=== PATIENT | male | born 1970 | race Two or more races ===

== ENCOUNTER 2023-12-24 10:32 | Inpatient (IN) | payer MEDICAID ==
[2023-12-24 11:26] LABS: BASOPHILS PERCENT AUTO 0.4 % (0.0-1.0); EOSINOPHILS ABSOLUTE AUTO 0.2 K/mm3 (0.0-0.4); EOSINOPHILS PERCENT AUTO 1.8 % (0.0-6.0); HEMATOCRIT 43.1 % (42.0-52.0); HEMOGLOBIN 14.1 gm/dl (14.0-18.0); IMMATURE GRAN ABSOLUTE AUTO 0.03 K/mm3 (0.00-0.05); IMMATURE GRAN PERCENT AUTO 0.4 % (0.0-0.4); LYMPHOCYTES ABSOLUTE AUTO 1.3 K/mm3 (1.0-4.8); MEAN CORPUSCULAR HEMOGLOBIN 24.2 pg (28.0-32.0); MEAN CORPUSCULAR HGB CONC 32.7 g/dl (32.0-36.0); MEAN CORPUSCULAR VOLUME 73.9 fl (83.0-99.0); MONOCYTES ABSOLUTE AUTO 1.1 K/mm3 (0.0-0.8); MONOCYTES PERCENT AUTO 12.6 % (0.0-8.0); NEUTROPHILS ABSOLUTE AUTO 5.8 K/mm3 (1.8-7.7); NEUTROPHILS PERCENT AUTO 69.8 % (41.0-71.0); PLATELET COUNT,PLT 154 K/mm3 (150-400); RED BLOOD CELL COUNT 5.83 M/mm3 (4.52-5.90); WHITE BLOOD CELL COUNT,WBC 8.31 K/mm3 (3.9-11.3)
[2023-12-24 11:37] LABS: A/G RATIO 0.8 (1-2); ALANINE AMINOTRANSFERASE,ALT 52 U/L (16-63); ALBUMIN 3.3 g/dl (3.4-5.0); ALKALINE PHOSPHATASE 80 U/L (46-116); ANION GAP 15.2 (5-15); ASPARTATE AMNIOTRANSFERASE,AST 58 U/L (15-37); BILIRUBIN TOTAL 1.7 mg/dL (0.2-1.0); BLOOD UREA NITROGEN,BUN 7 mg/dL (7-18); CALCIUM 8.5 mg/dL (8.5-10.1); CARBON DIOXIDE,CO2 23 mEq/L (21-32); CHLORIDE,CL 100 mEq/L (98-107); EST CRCL DRUG DOSING (CG) 76.21 mL/min; ESTIMATED GFR 89 mL/min (>60); GLUCOSE RANDOM 138 mg/dL (70-99); INR 1.23; LIPASE 41 U/L (16-77); MAGNESIUM 2.1 mg/dL (1.8-2.4); POTASSIUM,K 4.2 mEq/L (3.5-5.1); PROTEIN TOTAL,TP 7.7 g/dl (6.4-8.2); PROTHROMBIN TIME 12.9 SECONDS (9.7-12.0); SODIUM,NA 134 mEq/L (136-145)
[2023-12-24 11:47] LABS: TROPONIN I HIGH SENSITIVITY < 4 pg/mL (<=76)
[2023-12-24] MEDS: Sodium Chloride 0.9% 1,000 ML IV ONE ×3 (11:54→15:10)
[2023-12-24 12:23] LABS: APPEARANCE,URINE CLEAR (Clear); BILIRUBIN,URINE 1+ (Negative); COLOR,URINE DARK YELLOW (Yellow); GLUCOSE,URINE NEGATIVE (Negative); KETONES,URINE 1+ (Negative); LEUKOCYTE ESTERASE,URINE NEGATIVE (Negative); NITRITE,URINE NEGATIVE (Negative); OCCULT BLOOD,URINE TRACE-INTACT (Negative); PROTEIN,URINE 2+ (Negative); UROBILINOGEN,URINE 0.2 (0.2-1.0)
[2023-12-24 12:32] LABS: BARBITURATE SCREEN,URINE NEGATIVE (CUTOFF=200); BENZODIAZEPINES SCREEN,URINE NEGATIVE (CUTOFF=150); BUPRENORPHINE SCREEN,URINE NEGATIVE (CUTOFF=10); METHADONE SCREEN, URINE NEGATIVE (CUT0FF=200); METHAMPHETAMINES SCREEN, URINE NEGATIVE (CUTOFF=500); OXYCODONE SCREEN,URINE NEGATIVE (CUT0FF=100); THC SCREEN,URINE 20 NG/ML NEGATIVE (CUTOFF=50)
[2023-12-24 12:36] LABS: AMPHETAMINES SCREEN, URINE NEGATIVE (CUTOFF=500)
[2023-12-24 12:42] LABS: BACTERIA,URINE MODERATE /hpf (FEW); MUCUS,URINE MODERATE /hpf (FEW); RBC,URINE 0-5 /hpf (0-5); SQUAMOUS EPITHELIAL CELLS,UR 0-5 /hpf (0-5); WBC,URINE 0-5 /hpf (0-5)
[2023-12-24] MEDS: Diltiazem 25 MG/5 ML SDV IVPUSH ONE (14:12)
[2023-12-24] MEDS: LORazepam 2 MG/ML SDV ONE (14:35)
[2023-12-24] MEDS: Multivitamin Tab PO SCH (15:08)
[2023-12-24] MEDS: Folic Acid 1 MG Tab PO SCH (15:08)
[2023-12-24] MEDS: Ondansetron 4 MG/2 ML SDV IV PRN (15:10)
[2023-12-24] MEDS: Thiamine 200 MG/2 ML MDV IVPUSH SCH (15:10)
[2023-12-24] MEDS: Folic Acid 50 MG/10 ML MDV IV SCH (15:10)
[2023-12-24] MEDS: Sodium Chloride 0.9% 1,000 ML IV SCH (15:14)
[2023-12-24] MEDS: Lidocaine 2% with EPINEPHrine 1:100,000 20 ML MDV INJECT ONE (19:47)
[2023-12-24] MEDS: levETIRAcetam 500 MG/5 ML SDV IVPUSH ONE (22:16)
[2023-12-24] MEDS: LORazepam 2 MG/ML SDV IV PRN ×2 (22:22→23:38)
[2023-12-24] MEDS: Diphtheria,Pertussis(Acell),Tetanus Vaccine 0.5 ML Syringe IM ONE (22:58)
[2023-12-24] MEDS: Benzonatate 100 MG Cap PO PRN (22:58)
[2023-12-25] MEDS: PHENobarbital Sodium 65 MG/ML SDV ONE (00:24)
[2023-12-25] MEDS: PHENobarbital Sodium 65 MG/ML SDV IVPUSH ONE (00:28)
[2023-12-25] MEDS: LORazepam 2 MG/ML SDV IVPUSH SCH ×2 (01:36→20:12)
[2023-12-25 05:31] LABS: HEMATOCRIT 34.4 % (42.0-52.0); MEAN CORPUSCULAR HEMOGLOBIN 24.9 pg (28.0-32.0); MEAN CORPUSCULAR HGB CONC 32.6 g/dl (32.0-36.0); MEAN CORPUSCULAR VOLUME 76.6 fl (83.0-99.0); MEAN PLATELET VOLUME 10.7 fl (9.4-12.4); PLATELET COUNT,PLT 114 K/mm3 (150-400); RED BLOOD CELL COUNT 4.49 M/mm3 (4.52-5.90); WHITE BLOOD CELL COUNT,WBC 6.67 K/mm3 (3.9-11.3)
[2023-12-25 05:32] LABS: HEMOGLOBIN 11.2 gm/dl (14.0-18.0)
[2023-12-25 06:49] LABS: A/G RATIO 0.7 (1-2); ALBUMIN 2.7 g/dl (3.4-5.0); ANION GAP 14.7 (5-15); BILIRUBIN TOTAL 1.3 mg/dL (0.2-1.0); BUN/CREATININE RATIO 7.1 (14-18); CALCIUM 7.5 mg/dL (8.5-10.1); CREATININE 0.7 mg/dL (0.7-1.3); EST CRCL DRUG DOSING (CG) 108.87 mL/min; POTASSIUM,K 3.7 mEq/L (3.5-5.1); PROTEIN TOTAL,TP 6.5 g/dl (6.4-8.2); TSH 1.647 uIU/mL (0.358-3.74)
[2023-12-25 08:11] LABS: HEMOGLOBIN A1C 5.2 %
[2023-12-25] MEDS: Labetalol 100 MG/20 ML MDV IVPUSH ONE (08:35)
[2023-12-25] MEDS ORDERED: LORazepam 2 MG/ML SDV IVPUSH PRN (10:14)
[2023-12-25] MEDS: levETIRAcetam 500 MG/5 ML SDV IVPUSH SCH ×2 (13:10→22:11)
[2023-12-25] MEDS: Nicotine 21 MG/24 Hr Patch TRDERM SCH (14:40)
[2023-12-26] MEDS: LORazepam 2 MG/ML SDV IVPUSH PRN ×4 (01:32→19:31)
[2023-12-26] MEDS: LORazepam 2 MG/ML SDV ONE (02:50)
[2023-12-26 05:44] LABS: HEMATOCRIT 36.1 % (42.0-52.0); HEMOGLOBIN 11.7 gm/dl (14.0-18.0); MEAN CORPUSCULAR HEMOGLOBIN 24.6 pg (28.0-32.0); MEAN CORPUSCULAR HGB CONC 32.4 g/dl (32.0-36.0); MEAN CORPUSCULAR VOLUME 75.8 fl (83.0-99.0); MEAN PLATELET VOLUME 10.2 fl (9.4-12.4); PLATELET COUNT,PLT 123 K/mm3 (150-400); RED BLOOD CELL COUNT 4.76 M/mm3 (4.52-5.90); WHITE BLOOD CELL COUNT,WBC 6.83 K/mm3 (3.9-11.3)
[2023-12-26 06:00] LABS: A/G RATIO 0.7 (1-2); ALBUMIN 2.8 g/dl (3.4-5.0); ANION GAP 17.3 (5-15); BILIRUBIN TOTAL 1.5 mg/dL (0.2-1.0); BUN/CREATININE RATIO 11.7 (14-18); CALCIUM 7.8 mg/dL (8.5-10.1); CREATININE 0.6 mg/dL (0.7-1.3); EST CRCL DRUG DOSING (CG) 127.01 mL/min; POTASSIUM,K 3.3 mEq/L (3.5-5.1); PROTEIN TOTAL,TP 6.9 g/dl (6.4-8.2)
[2023-12-26] MEDS ORDERED: Sodium Chloride 0.9% 1,000 ML IV SCH (07:30)
[2023-12-26] MEDS: Folic Acid 50 MG/10 ML MDV IV SCH (09:03)
[2023-12-26] MEDS: Sodium Chloride 0.9% 1,000 ML ONE (10:32)
[2023-12-26] MEDS: hydrALAZINE 20 MG/ML SDV IVPUSH PRN (11:32)
[2023-12-26] MEDS ORDERED: LORazepam 2 MG/ML SDV IVPUSH PRN ×2 (12:36→14:24)
[2023-12-26] MEDS: Potassium Chloride 10 MEQ in Premix Bag 1 BAG IV SCH (16:11)
[2023-12-26] MEDS: Pantoprazole 40 MG Vial IVPUSH SCH (21:23)
[2023-12-27 05:40] LABS: A/G RATIO 0.7 (1-2); ALBUMIN 2.8 g/dl (3.4-5.0); ANION GAP 16.5 (5-15); BILIRUBIN TOTAL 1.8 mg/dL (0.2-1.0); CREATININE 0.6 mg/dL (0.7-1.3); EST CRCL DRUG DOSING (CG) 127.01 mL/min; PHOSPHORUS 3.6 mg/dL (2.6-4.7); POTASSIUM,K 3.5 mEq/L (3.5-5.1); PROTEIN TOTAL,TP 6.8 g/dl (6.4-8.2)
[2023-12-27] MEDS: Sodium Chloride 0.9% 1,000 ML IV SCH (08:30)
[2023-12-27] MEDS: Potassium Chloride 10 MEQ in Premix Bag 1 BAG IV SCH (09:26)
[2023-12-27] MEDS: Sodium Chloride 0.9% 1,000 ML ONE (09:36)
[2023-12-27] MEDS: Magnesium Sulfate/Water 4 GM in Premix Bag 1 BAG IV ONE (09:37)
[2023-12-27] MEDS ORDERED: Sodium Chloride 0.9% 1,000 ML IV SCH (15:15)
[2023-12-27] MEDS: LORazepam 2 MG/ML SDV IVPUSH PRN (16:34)
[2023-12-28 07:41] LABS: HEMATOCRIT 40.7 % (42.0-52.0); HEMOGLOBIN 12.8 gm/dl (14.0-18.0); MEAN CORPUSCULAR HEMOGLOBIN 24.8 pg (28.0-32.0); MEAN CORPUSCULAR HGB CONC 31.4 g/dl (32.0-36.0); MEAN CORPUSCULAR VOLUME 78.7 fl (83.0-99.0); MEAN PLATELET VOLUME 10.5 fl (9.4-12.4); PLATELET COUNT,PLT 132 K/mm3 (150-400); RED BLOOD CELL COUNT 5.17 M/mm3 (4.52-5.90); WHITE BLOOD CELL COUNT,WBC 6.68 K/mm3 (3.9-11.3)
[2023-12-28 08:14] LABS: A/G RATIO 0.7 (1-2); ALBUMIN 2.8 g/dl (3.4-5.0); BILIRUBIN TOTAL 1.9 mg/dL (0.2-1.0); BUN/CREATININE RATIO 17.5 (14-18); CALCIUM 8.5 mg/dL (8.5-10.1); CREATININE 0.8 mg/dL (0.7-1.3); EST CRCL DRUG DOSING (CG) 95.26 mL/min
[2023-12-28] MEDS: Enoxaparin 40 MG/0.4 ML Syringe SUBCUT SCH (10:09)
[2023-12-29 05:27] LABS: BUN/CREATININE RATIO 13.3 (14-18); CALCIUM 8.4 mg/dL (8.5-10.1); CREATININE 0.9 mg/dL (0.7-1.3); EST CRCL DRUG DOSING (CG) 84.67 mL/min; MAGNESIUM 1.8 mg/dL (1.8-2.4); PHOSPHORUS 3.1 mg/dL (2.6-4.7)
[2023-12-29] MEDS: Potassium Bicarbonate/Cit Ac 20 MEQ Effervescent Tab PO ONE (08:03)
[2023-12-29] MEDS: chlordiazePOXIDE 25 MG Cap PO SCH (08:04)
[2023-12-29] MEDS: Metoprolol Tartrate 5 MG/5 ML SDV IVPUSH PRN (08:36)
[2023-12-29] MEDS: Metoprolol Tartrate 25 MG Tab PO SCH (10:09)
[2023-12-29] MEDS: Acetaminophen 325 MG Tab PO PRN (15:37)
[2023-12-30 05:36] LABS: ANION GAP 14.9 (5-15); BUN/CREATININE RATIO 7.8 (14-18); CALCIUM 8.7 mg/dL (8.5-10.1); CREATININE 0.9 mg/dL (0.7-1.3); EST CRCL DRUG DOSING (CG) 84.67 mL/min; MAGNESIUM 1.5 mg/dL (1.8-2.4); POTASSIUM,K 2.9 mEq/L (3.5-5.1)
[2023-12-30] MEDS: Magnesium Sulfate/Water 4 GM in Premix Bag 1 BAG IV ONE (06:16)
[2023-12-30] MEDS: Potassium Chloride 20 MEQ Tab.ER PO SCH (06:16)
[2023-12-30] MEDS: Potassium Chloride 10 MEQ in Premix Bag 1 BAG IV SCH (08:12)
[2023-12-30] MEDS: Thiamine 100 MG Tab PO SCH (20:20)
[2023-12-31 05:48] LABS: ANION GAP 13.6 (5-15); BUN/CREATININE RATIO 7.8 (14-18); CALCIUM 8.4 mg/dL (8.5-10.1); CREATININE 0.9 mg/dL (0.7-1.3); EST CRCL DRUG DOSING (CG) 84.67 mL/min; MAGNESIUM 1.8 mg/dL (1.8-2.4); POTASSIUM,K 3.6 mEq/L (3.5-5.1)
[2023-12-31] MEDS: Folic Acid 1 MG Tab PO SCH (09:24)
[2023-12-31] MEDS: Cyanocobalamin (Vitamin B12) 1,000 MCG Tab PO SCH (09:24)
[2023-12-31] MEDS: levETIRAcetam 500 MG Tab PO SCH (09:29)
[2023-12-31] MEDS: Potassium Chloride 20 MEQ Tab.ER PO ONE (11:17)
[2023-12-31] MEDS: Magnesium Sulfate/Water 4 GM in Premix Bag 1 BAG IV ONE (11:18)
[2023-12-31] MEDS: LORazepam 1 MG Tab PO PRN (20:14)
[2024-01-01 06:03] LABS: A/G RATIO 0.5 (1-2); ALBUMIN 2.5 g/dl (3.4-5.0); ANION GAP 13.8 (5-15); BILIRUBIN TOTAL 0.8 mg/dL (0.2-1.0); BUN/CREATININE RATIO 12.5 (14-18); CALCIUM 8.8 mg/dL (8.5-10.1); CREATININE 0.8 mg/dL (0.7-1.3); EST CRCL DRUG DOSING (CG) 95.26 mL/min; POTASSIUM,K 3.8 mEq/L (3.5-5.1); PROTEIN TOTAL,TP 7.2 g/dl (6.4-8.2)
[2024-01-01] MEDS: Ibuprofen 400 MG Tab PO PRN (11:37)
[2024-01-01] MEDS: Potassium Chloride 20 MEQ Tab.ER PO ONE (11:38)
[2024-01-02 05:37] LABS: ANION GAP 14.1 (5-15); BUN/CREATININE RATIO 13.3 (14-18); CALCIUM 8.6 mg/dL (8.5-10.1); CREATININE 0.9 mg/dL (0.7-1.3); EST CRCL DRUG DOSING (CG) 84.67 mL/min; MAGNESIUM 1.7 mg/dL (1.8-2.4); PHOSPHORUS 4.1 mg/dL (2.6-4.7); POTASSIUM,K 4.1 mEq/L (3.5-5.1)
== END 2024-01-02 13:10 | disposition home or self-care (01) | DRG 896 ==
LOC: JD.ED 10:32 → JD.ICU 12:58 → OBSVTOIN 12:58 → JD.MS 12-30 09:59
PROVIDERS: ADMIT Family Medicine; ATTEND Student in an Organized Health Care Education/Training Program
DX: F10.932 Alcohol use, unspecified with withdrawal with perceptual disturbance (principal); S06.5X0A Traumatic subdural hemorrhage without loss of consciousness, initial encounter; S06.6X0A Traumatic subarachnoid hemorrhage without loss of consciousness, initial encounter; R56.9 Unspecified convulsions; F17.210 Nicotine dependence, cigarettes, uncomplicated; I48.0 Paroxysmal atrial fibrillation; Z79.01 Long term (current) use of anticoagulants; W18.30XA Fall on same level, unspecified, initial encounter; Y92.89 Other specified places as the place of occurrence of the external cause
CPT/HCPCS: 36415; 70450; 70450-26; 71045; 71045-26; 80048; 80053; 80061; 80306; 80307; 81001; 83036; 83690; 83735; 84100; 84443; 84484; 85025; 85027; 85610; 90471; 90715; 93005; 93010; 96360; 96361; 97162-GP; 97530-GP; 99285; 99285-25; A9270-GY; J0360; J1650; J1953; J2060; J2405; J2470; J2560; J3411; J3475; J3480; J3490; J7030